=== PATIENT | female | born 1975 | race American Indian/Alaskan Native ===

== ENCOUNTER 2017-01-07 14:30 | Outpatient (CLI) | payer OTHER ==
--- NOTE | 2017-01-07 15:57 | Ultrasound Report ---
LEFT DIGITAL DIAGNOSTIC MAMMOGRAM with CAD and LEFT BREAST ULTRASOUND: 01/07/17 14:30:00 CLINICAL: Status post needle biopsy of a subareolar left breast mass on 03/06/16 with pathologic diagnosis of benign breast parenchyma with slight adenosis. She now complains of swelling or fullness in her left lateral chest wall. COMPARISON:03/06/16 FINDINGS: The breast is heterogeneously dense, which may obscure small masses.The previously biopsied subareolar mass is better defined and more dense on the CC view. It measures 2.3 x 1.6 cm on the CC view and is not as well seen on the MLO view. Ultrasound of left breast (including all four quadrants and the retroareolar area) was performed. A solid heterogeneous hypoechoic subareolar mass at 12 o'clock measures 2.3 x 0.9 x 2.0 cm. It has not changed in appearance by ultrasound. Physical examination of the left breast reveals no skin change. The lateral chest wall where she describes swelling is soft system with asymmetric fat. IMPRESSION: Solid 2.3 cm subareolar left breast mass which is slightly more dense on the CC view of the mammogram. Since the pathology is relatively nonspecific, recommend surgical excision. BI-RADS CATEGORY: 4--Suspicious RECOMMENDATION: Surgical consultation for surgical excision of the subareolar left breast mass. I discussed the findings and the recommendation for surgical consultation and excision with the patient at the time of the examination. ACR BI-RADS MAMMOGRAPHIC CODES: 0 = Needs additional imaging evaluation; 1 = Negative; 2 = Benign; 3 = Probably benign; 4 = Suspicious; 5 = Malignant; 6 = Known biopsy-proven malignancy COMMENT: 1. Dense breast tissue, i.e., adenosis, fibrocystic changes, etc., may obscure an underlying neoplasm. 2. Approximately 10% of cancers are not detected with mammography. 3. A negative mammography report should not delay biopsy if a clinically suspicious mass is present. COMMENT: Patient follow-up letters are generated by our [employer] application.
== END 2017-01-07 14:31 | disposition home or self-care (01) ==
LOC: SPVWC 14:30
PROVIDERS: ATTEND Internal Medicine
DX: N63 Unspecified lump in breast (principal)
CPT/HCPCS: 76641; G0206

== ENCOUNTER 2017-01-29 07:41 | Day surgery (SDC) | payer OTHER ==
--- NOTE | 2017-01-29 07:37 | Anesthesia Day of Surgery ---
Anesthesia Day of Surgery - Day of Surgery Patient Examined: Yes Patient H&P Reviewed: Yes Patient is NPO: Yes
--- NOTE | 2017-01-29 07:40 | Anesthesia Consultation ---
Anesthesia Consult and Med Hx - Airway Anesthetic Teeth Evaluation: Good (few missing teeth in back) ROM Head & Neck: Adequate Mental/Hyoid Distance: Adequate Mallampati Class: Class II Intubation Access Assessment: Probably Good - Pulmonary Exam CTA: Yes - Cardiac Exam Cardiac Exam: RRR - Pre-Operative Health Status ASA Pre-Surgery Classification: ASA2 Proposed Anesthetic Plan: MAC (pt prefers) - Pulmonary Hx Smoking: No Hx Sleep Apnea: No - Central Nervous System Hx Psychiatric Problems: No - Gastrointestinal Hx Gastroesophageal Reflux Disease: Yes (on occassion) - Endocrine Hx Hyperthyroidism: Yes (caused palpatations, no meds) - Hematic Hx Anemia: Yes - Other Systems Hx Cancer: No - Additional Comments Anesthesia Medical History Comments: NPO after MN. No prior GA. No family hx of anesthesia problems. Pt requests MAC
[~2017-01-29 07:41] MED LIST: DILAUDID ONE; DIPRIVAN 10 MG/ML IV ONE; MARCAINE 0.25% INFILTRATI ONE; NACL 0.9% 1000 ML 1,000 ML IV SCH; PEPCID PO NR; VERSED IV NR; VERSED ONE; XYLOCAINE MPF 2% ONE
[2017-01-29] MEDS ORDERED: NACL BACTERIOSTATIC INFILTRATI ONE (08:05)
[2017-01-29] MEDS ORDERED: ANCEF/STERILE WATER 2 GM/20 ML 2 GM/20 ML SYRINGE IV ONE (08:27)
[2017-01-29] MEDS ORDERED: PEPCID ONE (08:27)
[2017-01-29] MEDS ORDERED: VERSED ONE (08:27)
[2017-01-29] MEDS ORDERED: ANCEF/STERILE WATER 2 GM/20 ML IV NR (08:30)
[2017-01-29] MEDS ORDERED: VERSED IV NR (08:30)
[2017-01-29] MEDS ORDERED: PEPCID PO NR (08:30)
[2017-01-29] MEDS ORDERED: XYLOCAINE 1% 20 mL ONE (08:45)
[2017-01-29] MEDS ORDERED: MARCAINE 0.25% INFILTRATI ONE (09:05)
[2017-01-29] MEDS ORDERED: XYLOCAINE 1% 20 mL INFILTRATI ONE (09:05)
[2017-01-29] MEDS ORDERED: NACL 0.9% IR ONE (09:25)
[2017-01-29] MEDS ORDERED: DECADRON ONE (09:42)
[2017-01-29] MEDS ORDERED: ZOFRAN ONE (09:42)
--- NOTE | 2017-01-29 10:28 | Mammography Report ---
Operative specimen mammogram: A single tissue specimen is submitted that contains a soft tissue nodule containing a biopsy marker.
--- NOTE | 2017-01-29 11:28 | Short Stay Summary ---
Short Stay Documentation Date of service: 01/29/17 - History H&P: obtained from office - Allergies and Medications Current Medications: Allergies No Known Allergies Allergy (Verified 01/29/17 08:55) Home Medications Medication Instructions Recorded Confirmed Last Taken Type Cetirizine HCl [ZyrTEC] 10 mg PO QDAY 01/22/17 01/29/17 1 Week Ago History Iron 18 mg PO QDAY 01/22/17 01/29/17 2 Days Ago History HYDROcodone/APAP 5-325 [[place] 1 each PO Q6HR PRN #30 tablet 01/29/17 Unknown Rx 5/325] Active Medications Cefazolin Sodium (Ancef/Sterile Water 2 Gm/20 Ml) 2 gm IV PREOP NR Stop: 01/29/17 21:00 Famotidine (Pepcid) 20 mg PO PREOP NR Stop: 01/29/17 21:00 Sodium Chloride (Nacl 0.9% 1000 Ml) 1,000 mls @ 125 mls/hr IV DIRECT HENRY Last Admin: 01/29/17 08:20 Dose: 125 mls/hr Midazolam HCl (Versed) 2 mg IV PREOP NR Stop: 01/29/17 21:00 - Brief post op/procedure progress note Date of procedure: 01/29/17 Pre-op diagnosis: Left breast mass of the upper outer quadrant Post-op diagnosis: same Procedure: Left breast excisional biopsy Anesthesia: GETA Findings: Left breast mass with clip present Surgeon: CHARLOTTE OLEA Estimated blood loss: minimal Pathology: list Specimen disposition: to lab Condition: stable - Disposition Condition at discharge: Good Disposition: DISCHARGED TO HOME OR SELFCARE Short Stay Discharge Plan Activity: other (no heavy lifting) Diet: regular Wound: other (keep incision clean and dry; may shower in 24 hours; no baths, pools or lakes; do not rub or scrub incision) Follow up with: MAY RENTERIA MD [Primary Care Provider] - 7 Days CHARLOTTE OLEA MD [Staff Physician] - 7 Days Prescriptions: HYDROcodone/APAP 5-325 [[place] 5/325] 1 each PO Q6HR PRN #30 tablet PRN Reason: Pain
--- NOTE | 2017-01-29 11:29 | Operative Report ---
Operative Report Operative Report: Date of procedure: 01/29/2017 Pre-operative diagnosis: Left breast mass of the upper outer quadrant Post-operative diagnosis: Same Procedure name(s): Left breast excisional biopsy of the upper outer quadrant mass Surgeon: Fabi Rodriguez MD Anesthesia: General Findings: Left breast mass at the 12:00 position 1 cm from the nipple; radiograph specimen with clip and mass present EBL: Minimal Specimen: Left breast mass Disposition: PACU in good condition Indications for operative procedure: This is a 41-year-old lady with a known left breast mass at the 12 o'clock position 1 cm from the nipple with recent biopsy performed with discordant pathology. Recommendation were to proceed with an excisional biopsy. Patient wished to proceed with the above procedure. Procedure in Detail: The patient was taken to the operating room and was laid supine. Gen. anesthesia was administered. The left breast was prepped and draped in the normal sterile operative fashion. Timeout was performed. Ultrasound was used to localize area of concern at the 12 o'clock position 1 cm from the nipple. A periareolar skin incision was made with a 15 blade knife with dissection taken down to the subcutaneous tissues. The area of concern was identified and dissected free and removed with the aid of the Bovie cautery. Radiograph breast specimen with clip and mass present. Hemostasis was obtained. Breat cavity was irrigated and suctioned. Breast tissue was appropriately approximated and closed to also include approximation of the subcutaneous tissues with an interrupted 3-0 Vicryl. The skin was closed with a running 4-0 Monocryl and skin affix. She was awakened from anesthesia without any complications and transported to PACU in good condition.
[2017-01-29] MEDS ORDERED: PERCOCET 5/325 PO ONE (12:00)
[2017-01-29 12:14] VITALS: BP 158/82
--- NOTE | 2017-01-29 16:04 | Post Anesthesia Evaluation ---
- Post Anesthesia Evaluation Patient Participated: Yes Airway Patent: Yes Stable Respiratory Function: Yes Nausea/Vomiting: No Temp > 96.8F: Yes Pain Manageable: Yes Adequeate Hydration: Yes Anesthesia Complications: No Block Receding Appropriately: Not Applicable Patient on Ventilator: No
== END 2017-01-29 12:10 | disposition home or self-care (01) ==
LOC: OR 07:41
PROVIDERS: ATTEND Surgery
DX: D24.2 Benign neoplasm of left breast (principal); N60.21 Fibroadenosis of right breast; K21.9 Gastro-esophageal reflux disease without esophagitis; E03.9 Hypothyroidism, unspecified; D64.9 Anemia, unspecified; Z98.890 Other specified postprocedural states
CPT/HCPCS: 19120; 76098; 88307; J0690; J1100; J1170; J2250; J2405; J2704; J7030; 88305

== ENCOUNTER 2017-03-25 08:23 | Outpatient (CLI) | payer OTHER ==
--- NOTE | 2017-03-25 09:53 | Mammography Report ---
BILATERAL MAMMOGRAM with CAD: HISTORY: Cancer screening. Comparison studies are dated February 15 and March 01, 2016. FINDINGS: The breast tissue is heterogeneously dense, which could obscure detection of small masses (approximately 50%-75% glandular). No mass, distortion, suspicious calcification, or skin change is seen. IMPRESSION: Negative mammogram. There is no mammographic evidence of malignancy. RECOMMENDATION: Follow-up per ACS guidelines. BI-RADS CATEGORY: 1 = Negative ACR BI-RADS MAMMOGRAPHIC CODES: 0 = Needs additional imaging evaluation; 1 = Negative; 2 = Benign; 3 = Probably benign; 4 = Suspicious; 5 = Malignant; 6 = Known biopsy-proven malignancy COMMENT: 1. Dense breast tissue, i.e., adenosis, fibrocystic changes, etc., may obscure an underlying neoplasm. 2. Approximately 10% of cancers are not detected with mammography. 3. A negative mammography report should not delay biopsy if a clinically suspicious mass is present. COMMENT: Patient follow-up letters are generated in [employer].
== END 2017-03-25 08:24 | disposition home or self-care (01) ==
LOC: SPVWC 08:23
PROVIDERS: ATTEND Surgery
DX: Z12.31 Encounter for screening mammogram for malignant neoplasm of breast (principal); E03.9 Hypothyroidism, unspecified; D64.9 Anemia, unspecified
CPT/HCPCS: 77067; G0202

== ENCOUNTER 2017-12-05 08:31 | Outpatient (CLI) | payer OTHER ==
--- NOTE | 2017-12-05 15:50 | Ultrasound Report ---
ULTRASOUND ABDOMINAL WALL: 12/05/17 CLINICAL: Abdominal pain. Evaluate for umbilical hernia. FINDINGS: Ultrasound the anterior abdominal wall was performed and demonstrated no ventral hernia. Specifically no umbilical hernia identified. No mass or fluid. IMPRESSION: Negative study with no umbilical or ventral hernia identified. Consider CT abdomen and pelvis for further evaluation.
== END 2017-12-05 08:32 | disposition home or self-care (01) ==
LOC: SPVWC 08:31
PROVIDERS: ATTEND Internal Medicine
DX: R10.9 Unspecified abdominal pain (principal)
CPT/HCPCS: 76705

== ENCOUNTER 2018-01-22 05:52 | Outpatient (CLI) | payer OTHER ==
--- NOTE | 2018-01-22 11:03 | Cat Scan Report ---
CT ABDOMEN PELVIS WITH CONTRAST: HISTORY: Umbilical mass, hernia. COMPARISON: none. TECHNIQUE: Helical CT in 1.25mm intervals following IV contrast. Sagittal and coronal reconstructions. FINDINGS: Lung bases: Normal. Liver: Normal. Biliary system: Normal. Pancreas: Normal. Spleen: Normal. Kidneys/ureters/bladder: Normal. Adrenal glands: Normal. Aorta: Normal. Intestines: Normal. Appendix: Normal. Pelvic viscera: The uterus is mildly enlarged measuring 12 cm in length. There is at least one enhancing fibroid in the left lateral wall measuring 2.8 cm. Smaller fibroids are likely present. Bilateral ovarian cysts are identified measuring 2.4 cm on the right and 1.9 cm on the left. Ascites: None. Adenopathy: None. Musculoskeletal: Normal. No evidence for umbilical hernia or mass. IMPRESSION: Mildly enlarged uterus with evidence of uterine fibroids. Bilateral simple appearing ovarian cysts. No umbilical hernia is visualized.
== END 2018-01-22 05:53 | disposition home or self-care (01) ==
LOC: CT 05:52
PROVIDERS: ATTEND Internal Medicine
DX: D25.9 Leiomyoma of uterus, unspecified (principal); N83.201 Unspecified ovarian cyst, right side; N83.202 Unspecified ovarian cyst, left side; N85.2 Hypertrophy of uterus
CPT/HCPCS: 74177; Q9967

== ENCOUNTER 2018-03-31 13:23 | Outpatient (CLI) | payer OTHER ==
--- NOTE | 2018-03-31 15:11 | Mammography Report ---
BILATERAL DIGITAL SCREENING MAMMOGRAM with CAD: 03/31/18 13:23:00 CLINICAL: Routine screening.Status post left surgical excision 01/29/17 COMPARISON:03/25/17 FINDINGS: The breasts are heterogeneously dense, which may obscure small masses.Minimal left postsurgical change. No mass, architectural distortion or suspicious calcifications. IMPRESSION: No mammographic evidence of malignancy. BI-RADS CATEGORY: 1 - - Negative RECOMMENDATION: Routine mammographic screening in one year. COMMENT: Patient follow-up letters are generated by our [employer] application.
== END 2018-03-31 13:24 | disposition home or self-care (01) ==
LOC: SPVWC 13:23
PROVIDERS: ATTEND Surgery
DX: Z12.31 Encounter for screening mammogram for malignant neoplasm of breast (principal); K21.9 Gastro-esophageal reflux disease without esophagitis
CPT/HCPCS: 77067

== ENCOUNTER 2021-02-20 08:56 | Outpatient (CLI) | payer OTHER ==
--- NOTE | 2021-02-20 11:10 | Mammography Report ---
BILATERAL DIGITAL SCREENING MAMMOGRAM WITH CAD HISTORY: Screening mammogram, status post left breast surgical excision. TECHNIQUE: Routine digital mammographic imaging performed. This examination was interpreted with pauline forbes benefit of Computer[employer]aided Detection analysis. COMPARISON: 03/31/2018, 03/25/2017. FINDINGS: Breast Density: heterogeneously dense breast parenchymal pattern which somewhat lessens the sensitivi ty of the evaluation. Digital CC and MLO views demonstrate no mammographic evidence of malignancy. Stable mild postsurgica l change in the left breast. IMPRESSION: No mammographic evidence of malignancy. If the clinical examination remains stable, recommend bilate ral mammogram in approximately one year. BIRADS 2: Benign Finding(s). FURTHER INFORMATION: According to the [employer], yearly mammograms are recommend ed starting at age 40 and continuing as long as a woman is in good health. Clinical Breast Exams shou ld be part of a periodic health exam-about every 3 years for women in their 20s and 30s and every yea r for women 40 and over. Breast self exam is an option for women starting in their 20s. Any breast ch lucero noted on a breast self exam should be reported promptly to the patient's healthcare provider. Br east MRI is recommended for women with an approximately 20-25% or greater lifetime risk of breast can cer, including women with a strong family history of breast or ovarian cancer and women who have been treated for Hodgkin's disease. A negative Mammography report should not discourage follow up or biopsy of a clinically significant f inding and/or abnormality. Dense breast tissue may obscure small neoplasms. The patient will be entered into a reminder system with a target due date for the next screening mamm ogram. Signer Name: Giovani Dumont MD Signed: 02/20/2021 11:06 AM Workstation Name: [id number]
== END 2021-02-20 08:57 | disposition home or self-care (01) ==
LOC: SPVWC 08:56
PROVIDERS: ATTEND Surgery
DX: Z12.31 Encounter for screening mammogram for malignant neoplasm of breast (principal); N64.89 Other specified disorders of breast
CPT/HCPCS: 77067